=== PATIENT | female | born 1940 | race Caucasian/White ===

== ENCOUNTER → 2018-11-21 | Day surgery (SDC) | payer MEDICARE, BC ==
[~2018-11-21] MED LIST: ACEBUTOLOL HCL200 MG PO; AMERIGEL WOUN28.3 GM; AMLODIPINE BESY10 MG PO; ASPIRIN325 MG PO; B COMPLEX1 EACH PO; B-COMPLEX PO; BACTRIM; BAYER ASPIRIN PO; BIOTIN DT; BIOTIN PO; BUMETANIDE2 MG PO; CALCIUM; CLARITIN-D 241 EACH PO; CLINDAMYCIN HC300 MG PO; COLESTIPOL HCL1 GM PO; COZAAR50 MG PO; CYTOMEL25 MCG PO; DAPSONE PO; DAPSONE25 MG PO; DESONIDE5 GM; EPINEPHRINE HCL 1:1000 1ML 1 MG/ML AMP ONE; FENTANYL CITRATE/PF 100MCG/2 ML INJ ONE; FLUOCINONIDE-E15 GM TOP; FOLIC ACID1 MG PO; GLIMEPIRIDE4 MG PO; GLUCAGON FOR INJ 1 MG VIAL ONE; HYOSCYAMINE SULFATE 0.5 MG/ML INJ ONE; IRON; JUICE PLUS; JUICE PLUS VIT PO; KETOCONAZOLE TOP; KETOCONAZOLE15 GM TOP; LEVEMIR100 UNIT/1; LEVOTHYROXINE112 MCG PO; LEVOTHYROXINE137 MCG PO; LIOTHYRONINE SO5 MCG PO; METFORMIN HCL1000 MG PO; MIDAZOLAM HCL 2 MG/2 ML VIAL ONE; MINOCYCLINE HC100 M1 PO; PLAVIX75 MG PO; PRENATAL FORMU1 EACH PO; PROTONIX40 MG; REMICADE; REMICADE100 MG/VIA IV; SILVER SULFADI400 GM TOP; SILVER SULFADIA10 GM; SILVER SULFADIAZINE TOP; SUCRALFATE1 GM PO; SYNTHROID125 MCG PO; SYNTHROID150 MCG PO; TRIAMCINOLONE; TRIAMCINOLONE A15 G1 TOP; VITAMIN D-32000 UNIT PO; WELCHOL625 MG PO; XARELTO20 MG; [UNRECOGNIZED DRUG - OTHER] PO
--- OUTSIDE RECORDS SUMMARY | 2018-11-21 07:41 | XMS REPORT | Clinical Summary ---
Author Author MIGEL [facility] [employer] [facility] Address Unknown Phone Unavailable Care Team Providers Care Fine Arts Chair Name Role Phone Brian Steeel PCP Allergies Comments Active Allergy Reactions Severity Noted Date Rifampin Nausea And 07/06/2016 Vomiting Medications End Date Status Medication Sig Dispensed Refills Start Date Active acebutolol (SECTRAL) 200 Take 200 mg 0 MG capsule by mouth 2 (two) times daily. Active amLODIPine (NORVASC) 10 Take 10 mg by 0 MG tablet mouth daily. Active bumetanide (BUMEX) 2 MG Take 1 mg by 0 tablet mouth daily . Active colestipol (COLESTID) 1 Take 1 g by 0 gram tablet mouth 2 (two) times daily. Active liothyronine (CYTOMEL) 25 Take 25 mcg 0 MCG tablet by mouth daily. Active losartan (COZAAR) 50 MG Take 50 mg by 0 tablet mouth 2 (two) times daily. Active pantoprazole (PROTONIX) Take 40 mg by 0 40 MG tablet mouth daily . Active INFLIXIMAB (REMICADE IV) Inject 0 intravenously once every 8 weeks. Active cyanocobalamin (VITAMIN Take 500 mcg 0 B-12) 500 MCG tablet by mouth daily. Active VITAMIN B COMPLEX (B Take 1 tablet 0 COMPLEX ORAL) by mouth daily. Active vitamin Take 1 tablet 0 w/rhblanr-dsvx-sbinso by mouth ( PLUS) 27 mg daily. iron- 1 mg Tab Active loratadine-pseudoephedrin Take 1 tablet 0 e (CLARITIN-D 24-HOUR) by mouth 10-240 mg per 24 hr every night tablet as needed for Allergies. Active BIOTIN ORAL Take by 0 mouth. Active INSULIN Inject 15 0 GLARGINE,HUM.REC.ANLOG Units (LANTUS SOLOSTAR SUBQ) subcutaneousl y. Active SILVER SULFADIAZINE TOP Apply 0 topically. Active DESONIDE TOP Apply 0 topically. Active cholecalciferol, vitamin Take by 0 D3, (VITAMIN D3 ORAL) mouth. Active levothyroxine (SYNTHROID, Take 125 mcg 0 LEVOTHROID) 125 MCG by mouth tablet Every morning on an empty stomach. Active CALCIUM ORAL Take by 0 mouth. Active rivaroxaban (XARELTO) 20 Take by mouth 0 mg Tab tablet daily with dinner. Active acetaminophen (TYLENOL) Take 650 mg 0 325 MG tablet by mouth every 6 (six) hours as needed for Pain. 01/16/2018 Discontinued aspirin 325 MG tablet Take 325 mg 0 by mouth nightly. 01/16/2018 Discontinued clopidogrel (PLAVIX) 75 Take 75 mg by 0 mg tablet mouth daily. 01/16/2018 Discontinued levothyroxine (SYNTHROID, Take 137 mcg 0 LEVOTHROID) 137 MCG by mouth tablet Every morning on an empty stomach. 01/16/2018 Discontinued ergocalciferol (VITAMIN Take 50,000 0 D2) 50,000 unit capsule Units by mouth once a week. 01/16/2018 Discontinued aspirin 81 MG EC tablet Take 81 mg by 0 mouth daily. 01/16/2018 Discontinued UNKNOWN Cream for 0 legs, will bring name on dos . 01/16/2018 Discontinued LORATADINE (CLARITIN Take by mouth 0 ORAL) as needed. 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 Last Filed Vital Signs Time Taken Vital Sign Reading 01/25/2018 3:00 PM CDT Blood Pressure 122/63 01/25/2018 3:00 PM CDT Pulse 63 01/25/2018 2:30 PM CDT Temperature 36.4 C (97.5 F) 01/25/2018 3:15 PM CDT Respiratory Rate 15 01/25/2018 3:35 PM CDT Oxygen Saturation 94% - Inhaled Oxygen - Concentration 01/25/2018 10:49 AM CDT Weight 114.7 kg (252 lb 14.4 oz) 01/25/2018 10:49 AM CDT Height 172.7 cm (5' 8") 01/25/2018 10:49 AM CDT Body Mass Index 38.45 Plan of Treatment Not on file Implants Device Identifier Shelf Expiration Date Model / Serial / Lot Implanted Type Area Manufactur er 07/21/2018 84-1052 / / [id number] Pin Kt Orthosrb 3ty Pin 1.3x4x Fracture/F BIOMET:TRA 84-1052 - [id number] ixation TRI Implanted: Qty: 1 on 07/21/2016 by Cameron Rivera DPM 03/20/2020 [id number] / / [id number] Pwdr Cellerate Rx 5mg Surgical Tissue Left: Foot WOUND CARE Rbi-43-Ahoxmp - [id number] Graft/Subs INNOVATION Implanted: Qty: 1 on 01/25/2018 by Mytrus Cameron Grover DPM Procedures Comments Procedure Name Priority Date/Time Associated Diagnosis POCT-GLUCOSE METER Routine 01/25/2018 2:33 PM CDT BIOPSY/EXCISION,SOFT 01/25/2018 Hammer toe of left foot TISSUE EXTREMITY LOWER 11:27 AM CDT ARTHROTOMY,FOOT/TOES/TESHA 01/25/2018 Hammer toe of left foot S 11:27 AM CDT CAPSULOTOMY,TOE 01/25/2018 Hammer toe of left foot 11:27 AM CDT TENOTOMY,TOE 01/25/2018 Hammer toe of left foot 11:27 AM CDT ARTHROPLASTY,TOE 01/25/2018 Hammer toe of left foot 11:27 AM CDT POCT-GLUCOSE METER Routine 01/25/2018 10:41 AM CDT after 11/20/2017 Results * POC-Glucose meter (01/25/2018 2:33 PM CDT) Only the most recent of 2 results within the time period is included. POC-Glucose Meter 104Comment: TESTED AT [facility] 70 - 110 mg/dL [facility] [address] [facility] [address] [facility] Specimen Blood Performing Organization Address City/State/Zipcode Phone Number [facility] [address] [place] [address] [facility] after 11/20/2017 Insurance Payer Benefit Subscriber ID Type Phone Address Plan / Group MEDICARE MEDICARE A xxxxxxxxxx Medicare B BLUE CROSS/BLUE SHIELD BCBS xxxxxxxxxxxx [facility] [phone] [address] [place] [address] [place]
--- OUTSIDE RECORDS SUMMARY | 2018-11-21 07:41 | XMS REPORT ---
Author Author [facility] Address Unknown Phone Unavailable Care Team Providers Care Public Transportation Inspector Name Role Phone Estefany LOPEZ Unavailable Unavailable RINA MARTINEZ Unavailable Unavailable Problems This patient has no known problems. Allergies, Adverse Reactions, Alerts This patient has no known allergies or adverse reactions. Medications This patient has no known medications. Results Test Description Test Time Test Comments Text Results Atomic Results Result Comments POCT-GLUCOSE METER 2018-01-25 14:34:00 POC-GLUCOSE METER (BEAKER) (test akdd=[id number]) 104 mg/dL 70-110 TESTED AT [address] [address] POCT-GLUCOSE [id number] 10:43:00* Test Item Value Reference Range Comments POC-GLUCOSE METER (BEAKER) (test ojbi=4427) 134 mg/dL 70-110 TESTED AT [address] [address] TISSUE [id number] 15:27:00Surgical Pathology Report Case: [id number] Authorizing Provider: Derrell Martinez MD Collected: 06/12/2017 1246 Ordering Location: [facility] Endoscopy Received: 06/12/2017 1414 Services Pathologist: Nicole Mays MD Specimen: Small Bowel, NOS, small bowel nodule bx SMALL BOWEL,ENDOSCOPIC BIOPSY: - SMALL BOWEL MUCOSA AND SUBMUCOSA WITH NO PATHOLOGIC ALTERATION - NEGATIVE FOR MICROORGANISM, GRANULOMAS, DYSPLASIA OR MALIGNANCY Signing Pathologist Direct Phone Line: [phone] signed by Nicole Mays MD on 06/15/2017 at 3:27 [id number] of small intestineSmall bowel nodule biopsyReceived in formalin labeled "small bowel", description "small bowel no dule biopsy" are four fragments measuring 1.0 x 0.6 x 0.1 cm in aggregate. Arvind bean submitted A1. DB/plPERFORMEDFL, FIRST OFFICER IN OR/30 MINUTE INCREMENTS 2017-06-12 17:01:00Reason for exam:->Small Bowel EnteroscopyFINAL REPORT Intraoperative fluoroscopy. CLINICAL HISTORY: Small amount [place] be. COMPARISON STUDY: None available. FINDINGS: A single fluoroscopically acquired images is submitted for interpretation. A scope is seen in place. An intraoperative verbal report was not requested. Please refer to the surgical note for further discussion. Fluoroscopy time: 2.6 minutes. Signed: Kaushal Burrows Verified Date/Time: 06/12/2017 17:01:29 Reading Location: [address] Radiology Reading Room -GLUCOSE [id number] 13:41:00* Test Item Value Reference Range Comments POC-GLUCOSE METER (BEAKER) (test [id number]=0506) 136 mg/dL 70-[address] [facility] [address] [place] [place] [address] POCT-GLUCOSE [id number] 10:42:00* Test Item Value Reference Range Comments POC-GLUCOSE METER (BEAKER) (test ptlc=0663) 132 mg/dL 70-[address] [facility] [address] [place] [place] [address]
[2018-11-21 13:49] VITALS: BP 122/71
--- NOTE | 2018-11-21 14:12 | Operative Report ---
DATE OF PROCEDURE: 11/21/2018 SURGEON: Ellis Grimaldo MD PROCEDURES: Esophagogastroduodenoscopy with biopsies and colonoscopy with polypectomy. INDICATIONS FOR EGD: Anemia. INDICATIONS FOR COLONOSCOPY: Surveillance colonoscopy, personal history of colon polyps, iron deficiency anemia. MEDICATIONS: The patient was done under MAC, please see anesthesiologist's note. PROCEDURE IN DETAIL: With the patient in left lateral decubitus position, the flexible fiberoptic Olympus gastroscope was introduced into the esophagus under direct visualization without any difficulty. Some scattered flat nodules were noted in the esophagus and some biopsies were obtained. The scope was then advanced with ease into the stomach. Mucosa overlying the antrum and the body revealed some patchy erythema and sysv-dy-djknmsqs edema and biopsies were obtained and sent to stain for H pylori. The pylorus was of normal contour and shape, it was intubated with ease and the scope was advanced all the way to the second portion of the duodenum. Biopsies were obtained from the proximal second portion to rule out sprue. The scope was then withdrawn back into the stomach and retroflexed and mucosa overlying the fundus and cardia appeared to be within normal limits. The scope was then straightened out, it was subsequently withdrawn. The patient tolerated the procedure well. IMPRESSION: 1. Esophageal nodules, flat, scattered, biopsies obtained. 2. Gastritis, biopsied. Biopsies sent to stain for Helicobacter pylori. 3. Rule out sprue. PLAN: Follow up histology. Continue Protonix 40 mg one p.o. a.c. b.i.d. PROCEDURE IN DETAIL: The patient was then turned around after adequate lubrication of the anal canal, a flexible fiberoptic Olympus colonoscope was inserted into the rectum with ease and advanced all the way to the cecum. It was then withdrawn slowly and mucosa overlying the cecum, ascending colon grossly appeared to be within normal limits. Scattered diverticular disease was noted throughout, it was more prominent in the left colon. Two polyps were hot biopsied from the descending colon. The sigmoid other than for diverticular disease grossly appeared to be within normal limits. The scope was then retroflexed into the distal rectum and the area around the dentate line appeared to be grossly within normal limits. The scope was then straightened out, it was subsequently withdrawn. The patient tolerated the procedure well. IMPRESSION: 1. Diverticulosis. 2. Descending colon polyps x2 hot biopsied. PLAN: Follow up histology. The patient will need small bowel series to complete workup. The patient might benefit from a followup colonoscopy in 5 years. Ellis Grimaldo MD [facility] [place] /[id number] cc: Brian Gallo
== END | disposition home or self-care (01) ==
LOC: OR 07:39
PROVIDERS: ATTEND Internal Medicine Gastroenterology
DX: K63.5 Polyp of colon (principal); K50.90 Crohn's disease, unspecified, without complications; D64.9 Anemia, unspecified; K92.1 Melena; Z86.010 Personal history of colon polyps; E03.9 Hypothyroidism, unspecified; K21.9 Gastro-esophageal reflux disease without esophagitis; I10 Essential (primary) hypertension; I48.91 Unspecified atrial fibrillation; Z88.8 Allergy status to other drugs, medicaments and biological substances; K29.50 Unspecified chronic gastritis without bleeding; K57.30 Diverticulosis of large intestine without perforation or abscess without bleeding; K22.8 Other specified diseases of esophagus; K29.80 Duodenitis without bleeding; K31.7 Polyp of stomach and duodenum
CPT/HCPCS: 36415; 43239; 45384; 82948; 88305; 88312; J0171; J1610; J1980; J2250; 45378

== ENCOUNTER → 2018-12-12 | Outpatient (CLI) | payer MEDICARE, BC ==
[~2018-12-12] MED LIST changes: -EPINEPHRINE HCL 1:1000 1ML 1 MG/ML AMP ONE; -FENTANYL CITRATE/PF 100MCG/2 ML INJ ONE; -GLUCAGON FOR INJ 1 MG VIAL ONE; -HYOSCYAMINE SULFATE 0.5 MG/ML INJ ONE; -MIDAZOLAM HCL 2 MG/2 ML VIAL ONE
--- NOTE | 2018-12-12 12:07 | Diagnostic Imaging Report ---
FLUOROSCOPIC SMALL BOWEL SERIES CLINICAL EDUCATOR(S): Dago Lauren MD Indication: Anemia. Comparison: None. Radiation Dose: Total dose: 34.9 mGy Total fluoroscopy time: 0.5 minutes Procedure: Small bowel follow through exam was performed using oral barium. Preliminary image was obtained before administration of contrast and serial overhead images were obtained after administration of oral barium. Fluoroscopy was performed and spot images were obtained. DISCUSSION: STRIKE WARFARE/MISSILE SYSTEMS OFFICER: The bowel gas pattern is non-obstructive. No acute bony abnormality. Surgical clips in the right upper quadrant. There are is abundant stool in the colon. STOMACH: Unremarkable mucosal pattern. SMALL BOWEL: Bulb and sweep are normal. Duodenal-jejunal junction is in the normal expected position. Small bowel loops are normal in caliber and distribution. There is no evidence of fistula, mucosal changes, stricture or dilation. The transit time was within normal limits. Spot image of the terminal ileum was unremarkable. COLON: Filling defects within the proximal colon likely reflect stool contents. No evidence of stricture or specific evidence of mass. IMPRESSION: No fluoroscopic evidence of mass or stricture in the small bowel. Abundant stool in the colon. Signed by: Dr. Dago Lauren MD on 12/12/2018 12:03 PM
== END ==
LOC: DX 08:28
PROVIDERS: ATTEND Internal Medicine Gastroenterology
DX: D64.9 Anemia, unspecified (principal)
CPT/HCPCS: 74250

== ENCOUNTER → 2020-06-11 | Day surgery (SDC) | payer MEDICARE, BC ==
[~2020-06-11] MED LIST changes: -CALCIUM; +CALCIUM PO; +FENTANYL CITRATE/PF 100MCG/2 ML INJ ONE; +GLYCOPYRROLATE INJ 0.2 MG/ML VIAL ONE; -IRON; +IRON IV; +LIDOCAINE HCL 2% LOCAL INJ 5 ML SDV VIAL INJ ONE; +MIDAZOLAM HCL 2 MG/2 ML VIAL ONE; +PANTOPRAZOLE 40 MG 10ML VIAL ONE; +PROPOFOL IV EMULSION 10 MG/ML 20 ML VIAL ONE; -SILVER SULFADIA10 GM; +SILVER SULFADIA10 GM TOP; +ULTRAM 50MG50 MG PO
[2020-06-11 08:30] VITALS: BP 127/73
--- NOTE | 2020-06-11 09:04 | Operative Report ---
DATE OF PROCEDURE: 06/11/2020 SURGEON: Ellis Grimaldo MD ADDITIONAL REFERRING PHYSICIAN: Dr. Merced Han. PROCEDURES: EGD and enteroscopy. INDICATIONS FOR PROCEDURES: Iron-deficiency anemia. MEDICATIONS: The patient was done under MAC, please see anesthesiologist's note. PROCEDURE IN DETAIL: With the patient in left lateral decubitus position, a flexible fiberoptic Olympus gastroscope was introduced into the esophagus under direct visualization without any difficulty. The esophagus appeared to be within normal limits. The scope was then advanced with ease into the stomach, mucosa overlying the antrum and the body revealed some patchy erythema. Pylorus was of normal contour and shape and it was intubated with ease and the scope was advanced all the way to the second portion of the duodenum. The mucosa overlying the second portion and the duodenal bulb appeared to be within normal limits. Biopsies were obtained to rule out sprue. The scope was then withdrawn back into the stomach and retroflexed, mucosa overlying the fundus and cardia appeared to be within normal limits. The scope was then straightened out, it was subsequently withdrawn. The pediatric fiberoptic Olympus colonoscope was then inserted into the oropharynx under direct visualization and advanced all the way to approximately 160 cm from the incisors. It was then withdrawn slowly and mucosa overlying the area that was examined grossly appeared to be within normal limits. The scope was subsequently withdrawn. The patient tolerated the procedure well. IMPRESSION: 1. Normal esophagus. 2. Gastritis, mild. 3. Rule out sprue. PLAN: Follow up histology. Check celiac panel. If celiac panel as well as the duodenal biopsies were negative for sprue, will proceed with capsule endoscopy. The patient did have a colonoscopy 11/21/2018, which revealed diverticulosis and two benign polyps were removed. If capsule endoscopy was totally negative, then we will consider repeating her colonoscopy. Ellis Grimaldo MD [facility] [facility] [place] /[id number] cc: MD Brian Argueta
[2020-06-16 06:11] LABS: ENDOMYSIAL ANTIBODIES, IGA Negative (Negative)
== END | disposition home or self-care (01) ==
LOC: OR 06:07
PROVIDERS: ATTEND Internal Medicine Gastroenterology
DX: D50.9 Iron deficiency anemia, unspecified (principal); K29.70 Gastritis, unspecified, without bleeding; K21.9 Gastro-esophageal reflux disease without esophagitis; K50.90 Crohn's disease, unspecified, without complications; I10 Essential (primary) hypertension; E11.9 Type 2 diabetes mellitus without complications; I48.91 Unspecified atrial fibrillation; E66.01 Morbid (severe) obesity due to excess calories; Z88.1 Allergy status to other antibiotic agents; Z01.812 Encounter for preprocedural laboratory examination; Z11.59 Encounter for screening for other viral diseases; Z79.4 Long term (current) use of insulin; Z68.41 Body mass index [BMI] 40.0-44.9, adult
CPT/HCPCS: 36415; 43239; 82784; 82948; 83516; 86256; 88305; 93005; C9113; J2001; J2250; J2704; J3010; U0002

== ENCOUNTER → 2022-07-08 | Day surgery (SDC) | payer MEDICARE, BC ==
[~2022-07-08] MED LIST changes: -FENTANYL CITRATE/PF 100MCG/2 ML INJ ONE; -GLYCOPYRROLATE INJ 0.2 MG/ML VIAL ONE; -MIDAZOLAM HCL 2 MG/2 ML VIAL ONE; +OMEPRAZOLE40 MG PO; -PANTOPRAZOLE 40 MG 10ML VIAL ONE; +PROCRIT10000 UNIT INJ; +[UNRECOGNIZED DRUG - CODE] PO
[2022-07-08 09:40] VITALS: BP 138/68
== END | disposition home or self-care (01) ==
LOC: ENDO 07:23
PROVIDERS: ATTEND Internal Medicine Gastroenterology
DX: K20.90 Esophagitis, unspecified without bleeding (principal); K29.50 Unspecified chronic gastritis without bleeding; K44.9 Diaphragmatic hernia without obstruction or gangrene; K57.90 Diverticulosis of intestine, part unspecified, without perforation or abscess without bleeding; K63.5 Polyp of colon; K50.90 Crohn's disease, unspecified, without complications; E11.9 Type 2 diabetes mellitus without complications; I10 Essential (primary) hypertension; E03.9 Hypothyroidism, unspecified; Z88.1 Allergy status to other antibiotic agents; Z01.810 Encounter for preprocedural cardiovascular examination; Z79.4 Long term (current) use of insulin; Z79.899 Other long term (current) drug therapy
CPT/HCPCS: 36415; 43239; 43450; 82948; 88305; 88342; 93005; C9113; J2001; J2704; 88312

== ENCOUNTER → 2025-05-08 | Day surgery (SDC) | payer MEDICARE, BC ==
[~2025-05-08] MED LIST changes: +ASPIRIN81 MG PO; +BUPIVACAINE 0.5%/EPI 30 ML SDV INJ ONE; +CEFAZOLIN SODIUM 2 GM ONE; +DEXAMETHASONE SOD PHOS INJ 4 MG/ML SDV ONE; +FENTANYL CITRATE/PF 100MCG/2 ML INJ ONE; +INTEGRA F CAPS1 EACH; +LACTATED RINGER'S 1,000 ML ONE; +ONDANSETRON HCL INJ 2MG/ML 2ML 2 MG/ML VIAL ONE; +OXYBUTYNIN CHLOR5 M1 PO; +TRESIBA100 UNIT/1
[2025-05-08 14:03] VITALS: TEMP 97.6
[2025-05-08 15:00] VITALS: BP 159/90; PULSE 66; RESP 14; O2SAT 98
== END | disposition home or self-care (01) ==
LOC: OR 10:24
PROVIDERS: ATTEND Podiatrist Foot & Ankle Surgery
DX: M89.372 Hypertrophy of bone, left ankle and foot (principal); I10 Essential (primary) hypertension; I48.91 Unspecified atrial fibrillation; J45.909 Unspecified asthma, uncomplicated; Z88.1 Allergy status to other antibiotic agents; Z01.810 Encounter for preprocedural cardiovascular examination; Z01.818 Encounter for other preprocedural examination; Z79.82 Long term (current) use of aspirin; Z79.4 Long term (current) use of insulin; Z79.899 Other long term (current) drug therapy
CPT/HCPCS: 28315; 36415; 71046; 82948; 93005; J1100; J2003; J2405; J2704; J3010; J7121